=== PATIENT | female | born 2005 | race Caucasian/White ===

== ENCOUNTER 2023-04-09 11:52 | Day surgery (SDC) | payer OTHER ==
[2023-04-09] MEDS ORDERED: Betamet Acet/Betamet Na Ph 30 MG/5 ML VIAL IM SCH (12:10)
[2023-04-09] MEDS ORDERED: Betamet Acet/Betamet Na Ph 30 MG/5 ML VIAL ONE (12:23)
[2023-04-09 12:24] VITALS: BMI 32.5
== END 2023-04-09 14:11 | disposition home or self-care (01) ==
LOC: CSHLD/OP 11:52
PROVIDERS: ATTEND Obstetrics & Gynecology
DX: O30.043 Twin pregnancy, dichorionic/diamniotic, third trimester (principal); O26.873 Cervical shortening, third trimester; Z3A.28 28 weeks gestation of pregnancy
CPT/HCPCS: 96372; J0702